=== PATIENT | male | born 1995 | race Caucasian/White ===

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

== ENCOUNTER 2018-08-15 09:30 | Emergency (ER) | payer OTHER ==
[~2018-08-15] VITALS: Ht 180.3 cm; Wt 63.0 kg
[2018-08-15 09:33] VITALS: BP 113/78
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
[2018-08-15] MEDS ORDERED: KETOROLAC 30 MG/1 ML IM ONE (10:00)
[2018-08-15] MEDS ORDERED: DIPH,PERTUSS(ACELL),TET VAC/PF 0.5 ML IM-VACC ONE (10:00)
[2018-08-15] MEDS ORDERED: KETOROLAC 30 MG/1 ML ONE (10:00)
[2018-08-15] MEDS ORDERED: L.E.T SOLUTION TP ONE ×3 (10:00→10:47)
--- NOTE | 2018-08-15 10:07 | NUR ---
PT MEDICATED PER EMAR. PT TOLERATED WELL.
--- NOTE | 2018-08-15 10:08 | NUR ---
PT TO XRAY NOW.
--- NOTE | 2018-08-15 11:40 | NUR ---
PT GIVEN DC INSTRUCTIONS. PT'S AOX4. RESPS EVEN AND UNLABORED. NO ACUTE DISTRESS AT DC.
== END 2018-08-15 11:42 | disposition home or self-care (01) ==
LOC: ED 11:36
DX: S50.311A Abrasion of right elbow, initial encounter (principal); S80.02XA Contusion of left knee, initial encounter; V03.10XA Pedestrian on foot injured in collision with car, pick-up truck or van in traffic accident, initial encounter; Y93.89 Activity, other specified; Y92.89 Other specified places as the place of occurrence of the external cause; Y99.8 Other external cause status
CPT/HCPCS: 29125; 73110; 73564; 73590; 90471; 90715; 96372; 99283; J1885